=== PATIENT | male | born 1985 | race Caucasian/White ===

== ENCOUNTER → 2019-01-11 16:59 | Emergency (ER) | payer OTHER ==
[2019-01-11 17:07] VITALS: BP 147/91
--- NOTE | 2019-01-11 17:39 | ED ---
Back Pain - HPI Summary HPI Summary: This patient is a 33 year old M presenting to [facility] with a chief complaint of lower midline back pain since yesterday. When he walks, he sometimes feels the back pain as a pulsing pain. The patient rates the pain 8/10 in severity. Symptoms aggravated by movement. Patient denies leg weakness, urinary symptoms , and abnormal BM movements. He had a similar injury 4 weeks ago and started physical therapy afterwards. He reports that it was getting better until he played an intense tennis match yesterday. - History of Current Complaint Chief Complaint: EDBackInjuryPain Stated Complaint: BACK PAIN PER PT Time Seen by Provider: 01/11/19 17:25 Hx Obtained From: Patient Onset/Duration: Sudden Onset, Lasting Days, Still Present Onset/Duration: Started Days Ago, Still Present Timing: Constant Back Pain Location: Is Discrete @ - Lower back Severity Initially: Severe Severity Currently: Severe Pain Intensity: 8 Pain Scale Used: 0-10 Numeric Aggravating Symptom(s): Movement Associated Signs And Symptoms: Positive: Other - Nausea. Denies urinary symptoms and abnormal BM.. Negative: Weakness - Allergies/Home Medications Allergies/Adverse Reactions: Allergies Allergy/AdvReac Type Severity Reaction Status Date / Time No Known Allergies Allergy Verified 01/11/19 17:40 PMH/Surg Hx/FS Hx/Imm Hx Endocrine/Hematology History: Denies: Hx Diabetes Respiratory History: Reports: Hx Pneumonia Denies: Hx Asthma - Surgical History Surgery Procedure, Year, and Place: None Infectious Disease History: No Infectious Disease History: Denies: Traveled Outside the [place] in Last 30 Days - Family History Known Family History: Positive: Cardiac Disease, Other - Schizophrenia - Social History Alcohol Use: Weekly Alcohol Amount: 2 glasses of wine per week Substance Use Type: Reports: None Hx Tobacco Use: No Review of Systems Positive: Nausea. Negative: Other - Abnormal BM movements Negative: other - Any urinary symptoms Positive: Myalgia - Lower back pain All Other Systems Reviewed And Are Negative: Yes Physical Exam - Summary Physical Exam Summary: Appearance: The patient is well-nourished in no acute distress and in no acute pain. Skin: The skin is warm and dry and skin color reflects adequate perfusion. HEENT: The head is normocephalic and atraumatic. The pupils are equal and reactive. The conjunctivae are clear and without drainage. Nares are patent and without drainage. Mouth reveals moist mucous membranes and the throat is without erythema and exudate. The external ears are intact. The ear canals are patent and without drainage. The tympanic membranes are intact. Neck: The neck is supple with full range of motion and non-tender. There are no carotid bruits. There is no neck vein distension. Respiratory: Chest is non-tender. Lungs are clear to auscultation and breath sounds are symmetrical and equal. Cardiovascular: Heart is regular rate and rhythm. There is no murmur or rub auscultated. There is no peripheral edema and pulses are symmetrical and equal. Abdomen: The abdomen is soft and non-tender. There are normal bowel sounds heard in all four quadrants and there is no organomegaly palpated. Musculoskeletal: Tenderness in lower back. Positive straight leg raise to about 40 degrees. Extremities are non-tender with full range of motion. There is good capillary refill. There is no peripheral edema or calf tenderness elicited. Neurological: Patient is alert and oriented to person, place and time. The patient has symmetrical motor strength in all four extremities. Cranial nerves are grossly intact. Deep tendon reflexes are symmetrical and equal in all four extremities. Psychiatric: The patient has an appropriate affect and does not exhibit any anxiety or depression. Triage Information Reviewed: Yes Vital Signs On Initial Exam: Initial Vitals Temp Pulse Resp BP Pulse Ox 98.7 F 77 16 147/91 98 01/11/19 17:03 01/11/19 17:03 01/11/19 17:03 01/11/19 17:03 01/11/19 17:03 Vital Signs Reviewed: Yes Diagnostics - Vital Signs Vital Signs Temp Pulse Resp BP Pulse Ox 01/11/19 17:03 98.7 F 77 16 147/91 98 - Laboratory Lab Statement: Any lab studies that have been ordered have been reviewed, and results considered in the medical decision making process. Back Pain Course/Dx - Course Course Of Treatment: Mr. Montoya present with what clearly sounds like a musculoskeletal low back pain. There are some aspects that are suggestive of a disc issue. He may need an MRI scan in the future but I'm going to treat him with Ativan as a muscle relaxer for couple of days in conjunction with ibuprofen as a nonsteroidal. - Diagnoses Provider Diagnoses: Strain of muscle, fascia and tendon of lower back, initial encounter Discharge - Sign-Out/Discharge Documenting (check all that apply): Patient Departure - D/C home Patient Received Moderate/Deep Sedation with Procedure: No - Discharge Plan Condition: Stable Disposition: HOME Prescriptions: LORazepam TAB(*) [Ativan TAB(*)] 1 mg PO Q6H PRN #10 tab MDD 4 PRN Reason: Pain Patient Education Materials: Low Back Strain (ED) Referrals: No Primary Care Phys,NOPCP [Primary Care Provider] - [facility] [Outside] Additional Instructions: Follow up with your PT during your scheduled appointment on Sunday01/13/19. Take ibuprofen for the pain and to reduce inflammation. RETURN TO THE EMERGENCY DEPARTMENT FOR NEW OR WORSENING SYMPTOMS. - Billing Disposition and Condition Condition: STABLE Disposition: Home - Attestation Statements Document Initiated by Tony: Yes Documenting Scribe: Ravi Fleming Provider For Whom Tony is Documenting (Include Credential): Yannick Ospina MD Scribe Attestation: Ravi Redman, scribed for Yannick Ospina MD on 01/11/19 at 1819. Scribe Documentation Reviewed: Yes Provider Attestation: The documentation as recorded by the Ravi tomas accurately reflects the service I personally performed and the decisions made by , Yannick Ospina MD Status of Scribe Document: Viewed
== END | disposition home or self-care (01) ==
LOC: ED 16:59
DX: S39.012A Strain of muscle, fascia and tendon of lower back, initial encounter (principal); X58.XXXA Exposure to other specified factors, initial encounter
CPT/HCPCS: 99282